=== PATIENT | male | born 1990 | race Caucasian/White ===

== ENCOUNTER 2017-04-25 19:26 | Emergency (ER) | payer SELFPAY ==
--- NOTE | ~2017-04-25 | ER ---
PATIENT'S NAME: DEACON TREVIZO [facility] AGE: 26 Y [address] ROOM: [place] [address] LOCATION: [facility] ADMIT DATE: 04/25/2017 ER/Outpatient Report DISCHARGE DATE: 04/25/2017 FAMILY PHYSICIAN: PHYSICIAN, NO ATTENDING PHYSICIAN: Rickie Brito SEEN AT: 1945 hours. HISTORY OF PRESENT ILLNESS: The patient is a 26-year-old male who said 3 days ago he dropped a cinder block on his left foot. The patient at that time noticed a laceration just proximal to his great toe. The patient has continued to have some swelling and tenderness over the injured site. ALLERGIES: HE HAS NO MEDICINAL ALLERGIES. HOME MEDICATIONS: None. IMMUNIZATIONS: Said he has had a tetanus in the last year. MEDICAL HISTORY: No chronic diseases such as diabetes. SOCIAL HISTORY: Smoker half pack a day. REVIEW OF SYSTEMS: GENERAL: Health good. MUSCULOSKELETAL: Includes swelling and tenderness in the dorsal left foot result of a direct blow from a cinder block. PHYSICAL EXAMINATION: VITAL SIGNS: His blood pressure was 132/80, his temperature was 98.6, his pulse was 77, and his O2 saturation was 97% on room air. GENERAL APPEARANCE: Alert and cooperative. EXTREMITIES: Exam of his left foot shows a 2 cm laceration just proximal to his great toe over the first metatarsal. There was a presence of some swelling and tenderness involving the first and second metatarsals. There was some slight redness noted just distal foot. LABORATORY DATA AND X-RAYS: PATIENT'S NAME: DEACON TREVIZO [facility] AGE: 26 Y [address] ROOM: [place] [address] LOCATION: [facility] ADMIT DATE: 04/25/2017 ER/Outpatient Report DISCHARGE DATE: 04/25/2017 FAMILY PHYSICIAN: PHYSICIAN, NO ATTENDING PHYSICIAN: Rickie Brito X-rays does show a fracture of the second metatarsal mid shaft, slight displacement. ASSESSMENT: 1. Fracture of the second metatarsal midshaft with some displacement. 2. Possible open fracture as a result of the laceration. PLAN: I did talk with Dr. Roman, who is on-call for Orthopedics. His recommendations, since he is allergic to penicillin, start him on clindamycin, crutches, having follow up in the morning. The patient was put on clindamycin, take 600 mg first dose followed by 300 every 6 hours. He was fitted with crutches and a boot. Recommend the use of ibuprofen for pain, elevation, and nonweightbearing. See Dr. Roman in the morning. The patient verbalized understanding of our x-ray findings and our recommendations. GRAEME GRIMES FOR MD YARELI DORSEY/komall /[id number] d: 04/26/17 0010 t: 05/02/17 1217, OUTPATIENT REPORT
== END 2017-04-25 20:33 | disposition disaster alternative care site (69) ==
LOC: GACC 19:26
DX: S92.322A Displaced fracture of second metatarsal bone, left foot, initial encounter for closed fracture (principal); F17.210 Nicotine dependence, cigarettes, uncomplicated; Z88.0 Allergy status to penicillin; W22.8XXA Striking against or struck by other objects, initial encounter